=== PATIENT | female | born 1990 | race Caucasian/White ===

== ENCOUNTER 2016-11-08 22:12 | Emergency (ER) | payer SELFPAY ==
[~2016-11-08] VITALS: Ht 154.9 cm; Wt 74.8 kg
[2016-11-08 22:35] VITALS: BP 128/69
--- NOTE | 2016-11-09 00:20 | NUR ---
TO ER BED 4
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
[2016-11-09] MEDS ORDERED: KETOROLAC 60 MG/2 ML VIAL IM ONE (00:35)
--- NOTE | 2016-11-09 01:18 | NUR ---
Patient appears to be resting comfortably in bed. Vital Signs within normal limits. Respirations even and unlabored.
[2016-11-09 01:21] VITALS: BP 133/85
--- NOTE | 2016-11-09 01:23 | NUR ---
Patient discharged with v/s stable. Written and verbal after care instructions given and explained. Patient alert, oriented and verbalized understanding of instructions. Ambulatory with steady gait. All questions addressed prior to discharge. ID band removed. Patient advised to follow up with PMD. Rx of MOTRIN 800MG QID/PRN, FLEXERIL 5MG HS/PRN given. Patient educated on indication of medication including possible reaction and side effects. Opportunity to ask questions provided and answered.
== END 2016-11-09 00:20 | disposition home or self-care (01) ==
LOC: MED 22:12
DX: S13.4XXA Sprain of ligaments of cervical spine, initial encounter (principal); M54.9 Dorsalgia, unspecified; R03.0 Elevated blood-pressure reading, without diagnosis of hypertension; V49.59XA Passenger injured in collision with other motor vehicles in traffic accident, initial encounter; Y93.89 Activity, other specified; Y92.488 Other paved roadways as the place of occurrence of the external cause; Y99.8 Other external cause status
CPT/HCPCS: 72050; 72100; 81025; 96372; 99284; J1885

== ENCOUNTER 2016-11-15 23:30 | Emergency (ER) | payer SELFPAY ==
[~2016-11-15] VITALS: Ht 154.9 cm; Wt 77.1 kg
[2016-11-15 23:38] VITALS: BP 117/62
--- NOTE | 2016-11-15 23:42 | NUR ---
AMBULATED TO ER BED 4
--- NOTE | 2016-11-15 23:55 | NUR ---
Patient being evaluated by physician at bedside.
[2016-11-16 00:09] VITALS: BP 117/62
--- NOTE | 2016-11-16 00:09 | NUR ---
Patient discharged with v/s stable. Written and verbal after care instructions given and explained. Patient alert, oriented and verbalized understanding of instructions. Ambulatory with steady gait. All questions addressed prior to discharge. ID band removed. Patient advised to follow up with PMD. Rx of CIPRO AND MOTRIN given. Patient educated on indication of medication including possible reaction and side effects. Opportunity to ask questions provided and answered.
== END 2016-11-16 00:09 | disposition home or self-care (01) ==
LOC: MED 23:30
DX: H92.01 Otalgia, right ear (principal); J02.9 Acute pharyngitis, unspecified; E11.9 Type 2 diabetes mellitus without complications
CPT/HCPCS: 99283